=== PATIENT | female | born 1985 | race Caucasian/White ===

== ENCOUNTER 2021-12-27 19:53 | Emergency (ER) | payer MEDICAID ==
[~2021-12-27] VITALS: Ht 157.5 cm; Wt 58.5 kg
[2021-12-27 20:25] VITALS: BP 134/85
--- NOTE | 2021-12-27 20:36 | NUR ---
PT SEEN BY BERNADETTE LOMAX
[2021-12-27] MEDS ORDERED: DOXY100T2 PO (20:43)
[2021-12-27] MEDS ORDERED: DOXYCYCLINE HYCLATE (100 MG) 100 MG TABLET ONE (20:47)
[2021-12-27] MEDS ORDERED: DOXYCYCLINE HYCLATE (100 MG) 100 MG TABLET PO ONE (21:00)
== END 2021-12-27 20:54 | disposition home or self-care (01) ==
LOC: ER 20:03
DX: S50.812A Abrasion of left forearm, initial encounter (principal); L03.114 Cellulitis of left upper limb; Z98.890 Other specified postprocedural states; Z90.49 Acquired absence of other specified parts of digestive tract; Z88.8 Allergy status to other drugs, medicaments and biological substances; Z88.0 Allergy status to penicillin; Z87.891 Personal history of nicotine dependence; X58.XXXA Exposure to other specified factors, initial encounter; Y93.89 Activity, other specified; Y92.89 Other specified places as the place of occurrence of the external cause; Y99.8 Other external cause status